=== PATIENT | male | born 1940 | race Caucasian/White ===

== ENCOUNTER 2017-11-17 19:36 | Emergency (ER) | payer MEDICARE ==
[~2017-11-17] VITALS: Ht 175.2 cm; Wt 79.4 kg
[~2017-11-17 19:36] MED LIST: ANAPROX DS550 MG PO; BLOOD PRESSURE MED; CIPROFLOXACIN500 MG PO; CLARITIN10 MG PO; CORTISPORIN SUS10 ML OT; DARVOCET N 1001 TAB PO; Ecotrin325 MG; FLONASE ALLERG9.9 ML NAS; KEFLEX500 MG PO; OXYCODONE15 MG PO; OXYCONTIN30 MG PO; PERCOCET 325 MG1 TA7 PO; PREDNISONE10 MG PO; ROBAXIN750 MG PO; ROBITUSSIN AC 110 ML PO
[2017-11-17 20:32] LABS: BASO % 0.3 % (0.0-1.0); EOS % 0.3 % (1.0-4.0); HEMOGLOBIN 12.9 g/dl (14.0-18.0); LYMPH # 1.1 10*3/uL (1.3-4.4); LYMPH % 10.8 % (27.0-41.0); MEAN CELL VOLUME 90.5 fl (80.0-94.0); MEAN CORPUSCULAR HGB 29.9 pg (27.0-31.0); MEAN CORPUSCULAR HGB CONC 33.1 g/dl (33.0-37.0); MONO # 1.3 10*3/uL (0.1-1.0); MONO % 12.9 % (3.0-9.0); NEUT # 7.7 10*3/uL (2.3-7.9); NEUT % 75.3 % (47.0-73.0); PLATELET COUNT AUTOMATED 191 10*3/uL (130-400); RED BLOOD COUNT 4.31 10*6/uL (4.50-5.90); RED CELL DISTRI WIDTH 13.7 % (0-14.5); WHITE BLOOD COUNT 10.2 10*3/uL (4.8-10.8)
[2017-11-17 20:58] VITALS: BP 101/58
[2017-11-17 21:04] LABS: ALBUMIN 3.5 gm/dl (3.1-4.5); ALKALINE PHOSPHATASE 54 U/L (45-117); BUN 26 mg/dl (7-24); CHLORIDE 96 mmol/L (98-107); CREATININE 1.12 mg/dL (0.70-1.30); POTASSIUM 3.9 mmol/L (3.5-5.1); SGOT/AST 15 IU/L (3-35); SGPT/ALT 13 U/L (12-78); SODIUM 131 mmol/L (136-145); TOTAL PROTEIN 7.3 gm/dL (6.4-8.2)
[2017-11-17 21:05] LABS: TROPONIN I < 0.015 ng/ml (<0.045)
[2017-11-17] MEDS ORDERED: LEVOFLOXACIN500 MG PO (21:17)
[2017-11-17] MEDS ORDERED: DUONEB 3 MG/3 ML3 M1 INH (21:17)
[2017-11-17] MEDS ORDERED: PREDNISONE20 M1 PO (21:17)
[2017-11-17 21:22] LABS: BILIRUBIN NEGATIVE (NEGATIVE); BLOOD 3+ (NEGATIVE); CLARITY CLEAR (CLEAR); COLOR YELLOW (YELLOW); GLUCOSE NEGATIVE (NEGATIVE); KETONE NEGATIVE (NEGATIVE); LEUKO ESTERASE NEGATIVE (NEGATIVE); NITRITE NEGATIVE (NEGATIVE); PH 5.5 (5.0-9.0); SPECIFIC GRAVITY >= 1.030 (1.005-1.030); UROBILINOGEN 0.2 E.U./dl (0.2-1.0)
[2017-11-17 21:31] LABS: BACTERIA TRACE; HYALINE CAST 0-2; WBC 0-2 wbc/hpf (0-5)
[2017-11-18] MEDS ORDERED: DUONEB 3 MG/3 ML3 M1 INH (12:27)
== END 2017-11-17 21:41 | disposition home or self-care (01) ==
LOC: ED 19:36
PROVIDERS: Emergency Medicine Emergency Medical Services
DX: J44.1 Chronic obstructive pulmonary disease with (acute) exacerbation (principal); Z98.890 Other specified postprocedural states; Z79.899 Other long term (current) drug therapy; Z79.82 Long term (current) use of aspirin; Z99.81 Dependence on supplemental oxygen

== ENCOUNTER → 2017-12-07 | Outpatient (CLI) | payer MEDICARE ==
[~2017-12-07] MED LIST changes: +DUONEB 3 MG/3 ML3 M1 INH; +LEVOFLOXACIN500 MG PO; +PREDNISONE20 M1 PO
== END | disposition home or self-care (01) ==
LOC: RAD 13:30
DX: M51.36 Other intervertebral disc degeneration, lumbar region (principal); M81.0 Age-related osteoporosis without current pathological fracture

== ENCOUNTER 2018-02-15 13:45 | Emergency (ER) | payer MEDICARE ==
[~2018-02-15] VITALS: Ht 177.8 cm; Wt 75.3 kg
[2018-02-15 16:11] VITALS: BP 144/78
== END 2018-02-15 16:01 | disposition home or self-care (01) ==
LOC: ED 13:45
DX: S20.211A Contusion of right front wall of thorax, initial encounter (principal); G89.29 Other chronic pain; M54.5 Low back pain; Z79.899 Other long term (current) drug therapy; Z98.890 Other specified postprocedural states; W19.XXXA Unspecified fall, initial encounter; Y93.89 Activity, other specified; Y92.89 Other specified places as the place of occurrence of the external cause; Y99.9 Unspecified external cause status

== ENCOUNTER 2021-03-26 21:21 | Emergency (ER) | payer MEDICARE ==
[~2021-03-26] VITALS: Ht 177.8 cm; Wt 81.6 kg
[2021-03-26 21:44] VITALS: BP 156/76
[2021-03-26] MEDS ORDERED: CEPHALEXIN500 M1 PO (22:35)
== END 2021-03-26 22:49 | disposition home or self-care (01) ==
LOC: ED 21:21
DX: L03.114 Cellulitis of left upper limb (principal); F17.200 Nicotine dependence, unspecified, uncomplicated; Z88.6 Allergy status to analgesic agent; Z79.899 Other long term (current) drug therapy

== ENCOUNTER 2021-03-28 12:11 | Emergency (ER) | payer MEDICARE ==
[~2021-03-28] VITALS: Ht 177.8 cm; Wt 81.6 kg
[~2021-03-28 12:11] MED LIST changes: +CEPHALEXIN500 M1 PO
[2021-03-28 12:29] VITALS: BP 120/75
[2021-03-28 13:05] LABS: BASO % 0.3 % (0.0-1.0); EOS % 0.1 % (1.0-4.0); HEMATOCRIT 40.1 % (42.0-52.0); LYMPH # 1.2 10*3/uL (1.3-4.4); LYMPH % 8.6 % (27.0-41.0); MEAN CELL VOLUME 90.9 fl (80.0-94.0); MEAN CORPUSCULAR HGB 29.9 pg (27.0-31.0); MEAN CORPUSCULAR HGB CONC 32.9 g/dl (33.0-37.0); MEAN PLATELET VOLUME 9.5 fl (9.6-12.3); MONO # 1.3 10*3/uL (0.1-1.0); NEUT # 11.4 10*3/uL (2.3-7.9); NEUT % 81.6 % (47.0-73.0); PLATELET COUNT AUTOMATED 282 10*3/uL (130-400); RED BLOOD COUNT 4.41 10*6/uL (4.50-5.90); RED CELL DISTRI WIDTH 13.1 % (0-14.5)
[2021-03-28 13:20] LABS: ALBUMIN 3.2 gm/dl (3.1-4.5); ALKALINE PHOSPHATASE 65 U/L (45-117); BUN 22 mg/dl (7-24); CHLORIDE 99 mmol/L (98-107); CREATININE 1.06 mg/dL (0.70-1.30); POTASSIUM 3.7 mmol/L (3.5-5.1); SGOT/AST 10 IU/L (3-35); SGPT/ALT 16 U/L (12-78); SODIUM 132 mmol/L (136-145); TOTAL PROTEIN 7.5 gm/dL (6.4-8.2)
[2021-03-28] MEDS ORDERED: SEPTDS PO ×2 (13:35→15:25)
== END 2021-03-28 13:34 | disposition home or self-care (01) ==
LOC: ED 12:11
PROVIDERS: Student in an Organized Health Care Education/Training Program
DX: L03.114 Cellulitis of left upper limb (principal); Z88.6 Allergy status to analgesic agent; Z79.899 Other long term (current) drug therapy; Z79.2 Long term (current) use of antibiotics; Z79.82 Long term (current) use of aspirin; Z98.890 Other specified postprocedural states

== ENCOUNTER 2025-03-30 17:55 | Inpatient (IN) | payer MEDICARE ==
[~2025-03-30] VITALS: Ht 175.3 cm; Wt 73.1 kg
[~2025-03-30 17:55] MED LIST changes: +SEPTDS PO
[2025-03-30 18:06] VITALS: BP 121/71
[2025-03-30] MEDS ORDERED: Ondansetron Hydrochloride 4 MG/2 ML VIAL IV ONE (18:25)
[2025-03-30 18:45] LABS: BASO # 0.0 10*3/uL (0.0-0.1); BASO % 0.3 % (0.0-1.0); EOS # 0.0 10*3/uL (0.0-0.4); EOS % 0.2 % (1.0-4.0); MEAN CELL VOLUME 89.8 fl (80.0-94.0); MEAN CORPUSCULAR HGB 30.5 pg (27.0-31.0); MEAN PLATELET VOLUME 9.2 fl (9.6-12.3); MONO # 1.0 10*3/uL (0.1-1.0); MONO % 8.2 % (3.0-9.0); NEUT # 10.4 10*3/uL (2.3-7.9); NEUT % 84.3 % (47.0-73.0); NUCLEATED RED BLOOD CELL 0.0 % (0.0-0.0); NUCLEATED RED BLOOD CELL 0.0 10*3/uL (0.0-0.0); PLATELET COUNT AUTOMATED 245 10*3/uL (130-400); RED CELL DISTRI WIDTH 12.9 % (0-14.5)
[2025-03-30 19:03] LABS: BUN 27.0 mg/dl (9-23)
[2025-03-30 21:22] VITALS: BP 110/66
[2025-03-30] MEDS ORDERED: ALBUTEROL SULFATE HF (22:21)
[2025-03-30] MEDS ORDERED: OXYCODONE HCL10 M1 PO (22:22)
[2025-03-30] MEDS ORDERED: IBU800 M1 PO (22:23)
[2025-03-30] MEDS ORDERED: AMLODIPINE BESY10 MG PO (22:24)
[2025-03-30] MEDS ORDERED: OMEPRAZOLE40 MG PO (22:24)
[2025-03-30] MEDS ORDERED: SODIUM CHLORIDE 0.9% 1,000 ML IV ONE (22:25)
[2025-03-30] MEDS ORDERED: ANORO ELLIPTA1 EACH INH (22:25)
[2025-03-30] MEDS ORDERED: HYDROmorphONE Hydrochloride 0.5 MG/0.5 ML SYRINGE IV PRN (22:30)
[2025-03-30 23:00] VITALS: BP 168/81
[2025-03-31 03:17] VITALS: BP 172/87
== END 2025-03-31 06:09 | disposition short-term general hospital (02) | DRG 536 ==
LOC: ED 17:55 → EDHOLD 21:24 → 5E 21:24
PROVIDERS: Emergency Medicine; ADMIT Internal Medicine; ATTEND Internal Medicine
DX: S72.001A Fracture of unspecified part of neck of right femur, initial encounter for closed fracture (principal); E87.1 Hypo-osmolality and hyponatremia; N17.9 Acute kidney failure, unspecified; J44.9 Chronic obstructive pulmonary disease, unspecified; M81.0 Age-related osteoporosis without current pathological fracture; D72.828 Other elevated white blood cell count; R73.9 Hyperglycemia, unspecified; F17.210 Nicotine dependence, cigarettes, uncomplicated; Z71.6 Tobacco abuse counseling; N18.9 Chronic kidney disease, unspecified; I12.9 Hypertensive chronic kidney disease with stage 1 through stage 4 chronic kidney disease, or unspecified chronic kidney disease; D64.9 Anemia, unspecified; W19.XXXA Unspecified fall, initial encounter; Z88.8 Allergy status to other drugs, medicaments and biological substances; Z98.52 Vasectomy status; Z79.899 Other long term (current) drug therapy; Y93.89 Activity, other specified; Y92.89 Other specified places as the place of occurrence of the external cause; Y99.8 Other external cause status

== ENCOUNTER 2025-04-14 21:51 | Emergency (ER) | payer MEDICARE ==
[~2025-04-14] VITALS: Ht 172.7 cm; Wt 83.9 kg
[~2025-04-14 21:51] MED LIST changes: +ALBUTEROL SULFATE HF; +AMLODIPINE BESY10 MG PO; +ANORO ELLIPTA1 EACH INH; +IBU800 M1 PO; +OMEPRAZOLE40 MG PO; +OXYCODONE HCL10 M1 PO
[2025-04-14 22:13] VITALS: BP 158/71
[2025-04-14 22:45] LABS: BILIRUBIN Negative (Negative); BLOOD Negative (Negative); CLARITY Clear (Clear); COLOR Yellow (Yellow); KETONE Negative (Negative); LEUKO ESTERASE 1+ (Negative); NITRITE Negative (Negative); PH 7.5 (4.5-8.0); SPECIFIC GRAVITY 1.010 (1.001-1.030); UROBILINOGEN 0.2 E.U./dl (0.0-1.0)
[2025-04-14 22:45] LABS: BASO # 0.1 10*3/uL (0.0-0.1); BASO % 0.4 % (0.0-1.0); EOS # 0.2 10*3/uL (0.0-0.4); EOS % 1.3 % (1.0-4.0); MEAN CELL VOLUME 91.0 fl (80.0-94.0); MEAN CORPUSCULAR HGB 29.4 pg (27.0-31.0); MEAN PLATELET VOLUME 8.9 fl (9.6-12.3); MONO # 0.8 10*3/uL (0.1-1.0); MONO % 6.1 % (3.0-9.0); NEUT # 10.2 10*3/uL (2.3-7.9); NEUT % 80.7 % (47.0-73.0); NUCLEATED RED BLOOD CELL 0.0 % (0.0-0.0); NUCLEATED RED BLOOD CELL 0.0 10*3/uL (0.0-0.0); PLATELET COUNT AUTOMATED 513 10*3/uL (130-400); RED CELL DISTRI WIDTH 13.0 % (0-14.5)
[2025-04-14 23:03] LABS: BUN 17 mg/dl (9-23)
[2025-04-14 23:34] LABS: WBC 16-20 wbc/hpf (0-5)
[2025-04-14 23:35] LABS: BACTERIA TRACE
[2025-04-14] MEDS ORDERED: Ciprofloxacin Hydrochloride 500 MG TAB PO ONE (23:55)
[2025-04-14] MEDS ORDERED: CIPRO500 MG PO (23:59)
[2025-04-15] MEDS ORDERED: ELIQUIS5 M1 PO (16:31)
[2025-04-16] MEDS ORDERED: PREDNISONE10 MG PO (13:26)
[2025-04-16] MEDS ORDERED: DOXYCYCLINE HY100 M3 PO (13:26)
[2025-04-17] MEDS ORDERED: OXYGEN NAS (08:51)
== END 2025-04-15 00:03 | disposition home or self-care (01) ==
LOC: ED 21:51
PROVIDERS: Internal Medicine
DX: N39.0 Urinary tract infection, site not specified (principal); E87.1 Hypo-osmolality and hyponatremia; D72.829 Elevated white blood cell count, unspecified; D64.9 Anemia, unspecified; I10 Essential (primary) hypertension; J44.9 Chronic obstructive pulmonary disease, unspecified; Z98.890 Other specified postprocedural states; Z88.8 Allergy status to other drugs, medicaments and biological substances